=== PATIENT | female | born 1965 | race Caucasian/White ===

== ENCOUNTER 2017-12-03 17:23 | Observation (INO) ==
[2017-12-03] MEDS ORDERED: ceFAZolin 2 GM Premix Inj 2 GM/50 ML PIGGYBACK IV.SIG ONE (17:28)
[2017-12-03] MEDS ORDERED: Diphtheria/Tetanus/Pertussis Vaccine Inj 0.5 ML Syringe IM ONE (17:28)
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
[2017-12-03 17:47] LABS: Baso % (Auto) 0.5 % (0.0-2.0); Eos % (Auto) 0.2 % (0.0-4.0); Hematocrit 27.1 % (35.0-46.0); Hemoglobin 9.4 gm/dL (11.6-15.3); Lymph # (Auto) 1.9 th/mm3 (1.0-4.8); Lymph % (Auto) 19.4 % (9.0-44.0); Mean Corpuscular HGB Conc 34.8 % (32.0-36.0); Mean Corpuscular Hemoglobin 31.6 pg (27.0-34.0); Mean Corpuscular Volume 90.8 fL (80.0-100.0); Mean Platelet Volume 8.5 fL (7.0-11.0); Mono # (Auto) 0.4 th/mm3 (0.0-0.9); Mono % (Auto) 4.1 % (0.0-8.0); Neut # (Auto) 7.4 th/mm3 (1.8-7.7); Neut % (Auto) 75.8 % (16.0-70.0); Platelet Count 350 th/mm3 (150-450); Red Blood Count 2.98 mil/mm3 (4.00-5.30); Red Cell Distribution Width 13.5 % (11.6-17.2); White Blood Count 9.8 th/mm3 (4.0-11.0)
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
[2017-12-03 18:08] LABS: Activated Partial Thrombo Time 20.9 sec (24.3-30.1); Prothrombin Time 9.8 sec (9.8-11.6)
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
[2017-12-03] MEDS ORDERED: Morphine Inj 4 MG/ML Vial IV.PUSH ONE (18:14)
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
[2017-12-03] MEDS ORDERED: Ketorolac Inj 30 MG/ML (IVP) Vial IV.PUSH PRN (21:36)
[2017-12-03] MEDS: Pantoprazole Inj 40 MG Vial IV.PUSH SCH (22:07)
[2017-12-03] MEDS: Sod Chloride 0.9% Inj 1,000 ML IV.CONT SCH (22:07)
[2017-12-04] MEDS: Sod Chloride 0.9% Inj 1,000 ML IV.CONT SCH (08:59)
[2017-12-04 09:13] LABS: Baso % (Auto) 0.2 % (0.0-2.0); Eos % (Auto) 0.2 % (0.0-4.0); Hematocrit 23.5 % (35.0-46.0); Lymph # (Auto) 1.2 th/mm3 (1.0-4.8); Lymph % (Auto) 16.4 % (9.0-44.0); Mean Corpuscular Hemoglobin 31.5 pg (27.0-34.0); Mean Corpuscular Volume 92.8 fL (80.0-100.0); Mono # (Auto) 0.5 th/mm3 (0.0-0.9); Mono % (Auto) 6.2 % (0.0-8.0); Neut # (Auto) 5.7 th/mm3 (1.8-7.7); Platelet Count 243 th/mm3 (150-450); Red Blood Count 2.53 mil/mm3 (4.00-5.30); Red Cell Distribution Width 13.1 % (11.6-17.2); White Blood Count 7.4 th/mm3 (4.0-11.0)
[2017-12-04 09:17] LABS: Alanine Aminotransferase 120 U/L (10-53)
[2017-12-04 09:18] LABS: Albumin 3.1 g/dL (3.4-5.0); Anion Gap 6 meq/L (5-15); Aspartate Aminotransferase 85 U/L (15-37); Blood Urea Nitrogen 8 mg/dL (7-18); Calcium 7.8 mg/dL (8.5-10.1); Carbon Dioxide 25.9 meq/L (21.0-32.0); Chloride 107 meq/L (98-107); Glomerular Filtration Rate 89 mL/min (>89); Glucose,Random 85 mg/dL (74-106); Potassium 3.7 meq/L (3.5-5.1); Sodium 139 meq/L (136-145)
[2017-12-04 09:19] LABS: Alkaline Phosphatase 61 U/L (45-117); Total Protein 6.2 g/dL (6.4-8.2)
[2017-12-04] MEDS ORDERED: Morphine Sulfate Inj 2 MG/ML Vial IV.PUSH PRN (14:01)
--- NOTE | 2017-12-04 14:09 | P.DCO ---
- Physical Therapy Order: Evaluate and treat, Improve ambulation, Strength and gait training - Occupational Therapy Order: Evaluate and treat, Improve ADL, Gross motor coordination - Case Management Consult Yes - Certification I have seen patient Kelsie Pace on 12/04/17. My clinical findings support the need for the requested home health care services because: Limited mobility due to disease progression, Deconditioned with increased weakness, Medication compliance is questionable, Limited ability to care for self, High risk of falls I certify that my clinical findings support that this patient is homebound because: Unsteady gait/balance, Unsafe to leave home unassisted, Unable to use public transportation
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
[2017-12-04] MEDS: Ketorolac Inj 30 MG/ML (IVP) Vial IV.PUSH SCH ×2 (15:39→21:48)
[2017-12-04] MEDS ORDERED: Enoxaparin Inj 40 MG/0.4 ML Syringe SQ SCH (16:00)
[2017-12-04] MEDS: Pantoprazole Inj 40 MG Vial IV.PUSH SCH (21:48)
[2017-12-04] MEDS: Senna/Docusate Sodium 8.6/50 MG Tablet PO SCH (21:49)
[2017-12-05] MEDS: Ketorolac Inj 30 MG/ML (IVP) Vial IV.PUSH SCH ×2 (04:28→09:48)
[2017-12-05 07:44] VITALS: PULSE 76; RESP 16
[2017-12-05] MEDS: Senna/Docusate Sodium 8.6/50 MG Tablet PO SCH (09:50)
[2017-12-05 11:39] VITALS: BP 114/56; TEMP 97.8; O2SAT 99
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
== END 2017-12-05 13:21 | disposition home or self-care (01) ==
LOC: NEDA 17:23 → NEPI 17:23 → EDBD 20:04 → NEPFCDU 21:52
PROVIDERS: ADMIT Surgery; ATTEND Surgery
DX: S60.221A Contusion of right hand, initial encounter; S90.02XA Contusion of left ankle, initial encounter; S50.11XA Contusion of right forearm, initial encounter; R07.9 Chest pain, unspecified; R40.4 Transient alteration of awareness; M50.322 Other cervical disc degeneration at C5-C6 level; R40.2410 Glasgow coma scale score 13-15, unspecified time; V03.10XA Pedestrian on foot injured in collision with car, pick-up truck or van in traffic accident, initial encounter; S93.402A Sprain of unspecified ligament of left ankle, initial encounter; S32.058A Other fracture of fifth lumbar vertebra, initial encounter for closed fracture; S90.32XA Contusion of left foot, initial encounter
CPT/HCPCS: 70450; 70486; 71010; 71045; 71260; 72125; 72129; 72132; 72170; 73090; 73590; 73600; 73620; 74177; 80048; 80053; 85025; 85610; 85730; 86850; 86900; 86901; 86923; 90471; 90715; 90774; 90775; 90784; 96361; 96372; 96374; 96375; 96376; 97110; 97116; 97162; 99285; 99291; C8952; C9113; G0378; G0390; G8987; G8988; J0690; J1650; J1885; J2270; J2405; J7030; L0484; L0560; L0565; L2114; Q9967